=== PATIENT | female | born 2000 | race Caucasian/White ===

== ENCOUNTER 2020-10-14 07:55 | Inpatient (IN) | payer MEDICAID, OTHER ==
[~2020-10-14] VITALS: Ht 157.5 cm; Wt 63.5 kg
[2020-10-14] MEDS ORDERED: PENICILLIN G POTASSIUM 5 MMU in DEXT 5% WATER 100 ML IV SCH (08:30)
[2020-10-14] MEDS ORDERED: LACTATED RINGERS 1,000 ML IV SCH (08:30)
[2020-10-14] MEDS ORDERED: LIDOCAINE HCL 1% 20ML VIAL (Pyxis) INJ INFIL SCH (08:30)
[2020-10-14] MEDS ORDERED: BUTORPHANOL TARTRATE 2 MG/ML VIAL IV PRN (08:30)
[2020-10-14] MEDS ORDERED: METHYLERGONOVINE MALEATE 0.2 MG/ML IM PRN (08:30)
[2020-10-14] MEDS ORDERED: NALOXONE HCL 0.4 MG/ML 1ML VIAL IM PRN (08:30)
[2020-10-14] MEDS ORDERED: CARBOPROST TROMETHAMINE 250 MCG/ML AMPUL IM PRN (08:30)
[2020-10-14] MEDS ORDERED: DEXT 5%/LACTATED RINGERS 1,000 ML IV SCH (08:30)
[2020-10-14] MEDS ORDERED: MISOPROSTOL 100MCG TABLET RC SCH (08:30)
[2020-10-14 09:30] LABS: BASOPHILS % 0.3 % (0.0-2.0); EOSINOPHILS % 0.8 % (0.0-5.0); HEMATOCRIT. 37.5 % (36.0-48.0); HEMOGLOBIN. 12.5 g/dL (12.0-16.0); LYMPHOCYTES % 15.9 % (20.0-50.0); MEAN CORPUSCULAR HEMOGLOBIN 29.2 pg (28.0-32.0); MEAN CORPUSCULAR VOLUME 87.2 fL (81.0-99.0); MEAN PLATELET VOLUME 10.1 fl (7.4-10.4); MONOCYTES % 6.4 % (2.0-8.0); NEUTROPHILS % 76.6 % (40.0-76.0); PLATELET 172 x1000/uL (130-400)
[2020-10-14] MEDS ORDERED: MINERAL OIL 30ML BOTTLE PO NR (12:30)
[2020-10-14] MEDS ORDERED: PENICILLIN G POTASSIUM 2.5 MMU in DEXTROSE 5% WATER 50 ML IV SCH (12:30)
[2020-10-14 12:50] LABS: HEPATITIS B SURFACE ANTIGEN NEGATIVE
[2020-10-14] MEDS: DEXT 5%/LR + PITOCIN 20UNITS/L 1,000 ML IV SCH ×2 (12:50→14:37)
[2020-10-14] MEDS ORDERED: BISACODYL 10MG SUPP PR PRN (13:30)
[2020-10-14] MEDS ORDERED: BENZOCAINE/LANOLIN/ALOE VERA SPRAY TOP PRN (13:30)
[2020-10-14] MEDS ORDERED: IBUPROFEN 800MG TABLET PO PRN (13:30)
[2020-10-14] MEDS ORDERED: HEMORRHOIDAL SUPP PR PRN (13:30)
[2020-10-14] MEDS ORDERED: IBUPROFEN 400MG TABLET PO PRN (13:30)
[2020-10-14] MEDS ORDERED: DEXT 5%/LR + PITOCIN 20UNITS/L 1,000 ML IV SCH (13:30)
[2020-10-14] MEDS ORDERED: ACETAMINOPHEN WITH CODEINE 300/30MG TABLET PO PRN (13:30)
[2020-10-14] MEDS ORDERED: GLYCERIN/WITCH HAZEL LEAF MEDICATED PAD TOP PRN (13:30)
[2020-10-14 15:20] VITALS: BP 120/72
[2020-10-14 15:44] LABS: CLARITY URINE CLOUDY (CLEAR); COLOR URINE YELLOW (YELLOW); KETONES URINE NEGATIVE (NEGATIVE); LEUKOCYTE ESTERASE URINE 3+ (NEGATIVE); NITRITE URINE NEGATIVE (NEGATIVE); OCCULT BLOOD URINE 3+ (NEGATIVE); PH URINE 6.5 (4.5-8.0); PROTEIN URINE NEGATIVE (NEGATIVE); SPECIFIC GRAVITY URINE 1.011 (1.005-1.030); UROBILINOGEN URINE 0.2 E.U./dL (0.2-1.0)
[2020-10-14 15:50] VITALS: BP 111/76
[2020-10-14 16:13] VITALS: BP 119/71
[2020-10-14 16:17] LABS: *AMPHETAMINES SCREEN URINE NEGATIVE (NEGATIVE); *BARBITURATES SCREEN URINE NEGATIVE (NEGATIVE); *BENZODIAZEPINES SCREEN URINE NEGATIVE (NEGATIVE); *COCAINE SCREEN URINE NEGATIVE (NEGATIVE); CANNABINOID URINE SCREEN NEGATIVE (NEGATIVE)
[2020-10-14 16:19] LABS: METHADONE URINE SCREEN NEGATIVE (NEGATIVE); OPIATES URINE SCREEN NEGATIVE (NEGATIVE); PHENCYCLIDINE URINE SCREEN NEGATIVE (NEGATIVE)
[2020-10-14] MEDS: SIMETHICONE 80MG TABLET CHEW PO SCH ×2 (16:37→21:35)
[2020-10-14] MEDS: MAGNESIUM/ALUMINUM HYDROXIDE/SIMETHICONE 30ML UDC PO SCH ×2 (16:38→21:35)
[2020-10-14 16:50] LABS: INR 0.9; PARTIAL THROMBOPLASTIN TIME 27.4 sec (23.4-31.0)
[2020-10-14 20:00] VITALS: BP 117/75
[2020-10-14] MEDS: DOCUSATE SODIUM 100MG CAPSULE PO SCH (21:35)
[2020-10-15 04:00] VITALS: BP 104/68
[2020-10-15 06:12] LABS: BASOPHILS % 0.2 % (0.0-2.0); EOSINOPHILS % 0.2 % (0.0-5.0); HEMATOCRIT. 32.3 % (36.0-48.0); HEMOGLOBIN. 10.7 g/dL (12.0-16.0); LYMPHOCYTES % 12.1 % (20.0-50.0); MEAN CORPUSCULAR HEMOGLOBIN 29.2 pg (28.0-32.0); MEAN CORPUSCULAR VOLUME 87.9 fL (81.0-99.0); MEAN PLATELET VOLUME 9.7 fl (7.4-10.4); MONOCYTES % 5.8 % (2.0-8.0); NEUTROPHILS % 81.7 % (40.0-76.0); PLATELET 154 x1000/uL (130-400); RED BLOOD CELL COUNT 3.67 mill/uL (4.2-5.4)
[2020-10-15] MEDS ORDERED: FERROUS SULFATE 325MG TABLET PO SCH (07:30)
[2020-10-15 08:10] VITALS: BP 114/82
[2020-10-15] MEDS ORDERED: PRENATAL VIT/FE FUMARATE/FA TABLET PO SCH (09:00)
[2020-10-15] MEDS ORDERED: IBUP-2030 PO (09:02)
[2020-10-15] MEDS ORDERED: FERR325T23 PO (09:02)
[2020-10-15 19:45] VITALS: BP 116/77
[2020-10-15] MEDS: DOCUSATE SODIUM 100MG CAPSULE PO SCH (21:05)
[2020-10-15] MEDS: MAGNESIUM/ALUMINUM HYDROXIDE/SIMETHICONE 30ML UDC PO SCH (21:05)
[2020-10-15] MEDS: SIMETHICONE 80MG TABLET CHEW PO SCH (21:06)
[2020-10-16 03:40] VITALS: BP 101/55
[2020-10-16] MEDS: MAGNESIUM/ALUMINUM HYDROXIDE/SIMETHICONE 30ML UDC PO SCH (07:30)
[2020-10-16 07:37] VITALS: BP 111/72
[2020-10-16] MEDS: SIMETHICONE 80MG TABLET CHEW PO SCH (07:57)
== END 2020-10-16 11:25 | disposition home or self-care (01) | DRG 560 ==
LOC: 8 EST LDRP 07:55 → OBSVTOIN 07:55 → 8EST 16:09
PROVIDERS: ADMIT Obstetrics & Gynecology; ATTEND Obstetrics & Gynecology
PROC: 10E0XZZ Delivery of Products of Conception, External Approach (ICD-10-PCS; principal; 2020-10-14)
DX: O90.81 Anemia of the puerperium (principal); Z37.0 Single live birth; Z3A.40 40 weeks gestation of pregnancy
CPT/HCPCS: 36415; 80305; 81003; 85025; 86592; 86703; 86762; 86850; 86900; 87340; 99281; J2540; J2590; J3490; J7060; J7120; J7121

== ENCOUNTER 2023-06-08 08:47 | Inpatient (IN) | payer OTHER ==
[~2023-06-08] VITALS: Ht 157.5 cm; Wt 69.4 kg
[~2023-06-08 08:47] MED LIST: FERR325T23 PO; IBUP-2030 PO
[2023-06-08] MEDS ORDERED: MEPERIDINE HCL/PF 50MG/ML CPJ IM NR (09:30)
[2023-06-08] MEDS ORDERED: MEPERIDINE HCL/PF 50MG/ML CPJ IV NR (09:30)
[2023-06-08] MEDS ORDERED: LIDOCAINE HCL 1% 20ML VIAL (Pyxis) INJ INFIL SCH (10:00)
[2023-06-08] MEDS ORDERED: METHYLERGONOVINE MALEATE 0.2 MG/ML IM PRN ×2 (10:00→11:45)
[2023-06-08] MEDS ORDERED: DEXT 5%/LACTATED RINGERS 1,000 ML IV SCH (10:00)
[2023-06-08] MEDS ORDERED: OXYTOCIN 30 UNITS/500ML NS PMX 500 ML IV SCH ×2 (10:00→11:45)
[2023-06-08] MEDS ORDERED: RHO(D) IMMUNE GLOBULIN 300 MCG/SYR IM ONE ×2 (10:00→10:15)
[2023-06-08] MEDS ORDERED: CARBOPROST TROMETHAMINE 250 MCG/ML AMPUL IM PRN (10:00)
[2023-06-08 10:14] LABS: BASOPHILS % 0.3 % (0.0-2.0); CLARITY URINE CLEAR (CLEAR); COLOR URINE YELLOW (YELLOW); EOSINOPHILS % 0.1 % (0.0-5.0); HEMATOCRIT. 33.3 % (36.0-48.0); HEMOGLOBIN. 10.9 g/dL (12.0-16.0); KETONES URINE TRACE (NEGATIVE); LEUKOCYTE ESTERASE URINE 1+ (NEGATIVE); LYMPHOCYTES % 10.7 % (20.0-50.0); MEAN CORPUSCULAR HEMOGLOBIN 26.6 pg (28.0-32.0); MEAN CORPUSCULAR VOLUME 81.6 fL (81.0-99.0); MEAN PLATELET VOLUME 10.7 fl (7.4-10.4); MONOCYTES % 4.3 % (2.0-8.0); NEUTROPHILS % 84.6 % (40.0-76.0); NITRITE URINE NEGATIVE (NEGATIVE); OCCULT BLOOD URINE 3+ (NEGATIVE); PLATELET 204 x1000/uL (130-400); PROTEIN URINE TRACE (NEGATIVE); RED BLOOD CELL COUNT 4.09 mill/uL (4.2-5.4); SPECIFIC GRAVITY URINE 1.018 (1.005-1.030)
[2023-06-08 10:24] LABS: INR 0.9; PARTIAL THROMBOPLASTIN TIME 24.9 sec (23.4-31.0); PROTHROMBIN TIME 9.8 sec (9.6-11.0)
[2023-06-08 10:50] LABS: *AMPHETAMINES SCREEN URINE NEGATIVE (NEGATIVE); *BARBITURATES SCREEN URINE NEGATIVE (NEGATIVE); *BENZODIAZEPINES SCREEN URINE NEGATIVE (NEGATIVE); *COCAINE SCREEN URINE NEGATIVE (NEGATIVE); CANNABINOID URINE SCREEN NEGATIVE (NEGATIVE); METHADONE URINE SCREEN NEGATIVE (NEGATIVE); OPIATES URINE SCREEN NEGATIVE (NEGATIVE); PHENCYCLIDINE URINE SCREEN NEGATIVE (NEGATIVE)
[2023-06-08] MEDS ORDERED: BENZOCAINE/LANOLIN/ALOE VERA SPRAY TOP PRN (11:45)
[2023-06-08] MEDS ORDERED: BISACODYL 10MG SUPP PR PRN (11:45)
[2023-06-08] MEDS ORDERED: IBUPROFEN 400MG TABLET PO PRN (11:45)
[2023-06-08] MEDS ORDERED: GLYCERIN/WITCH HAZEL LEAF MEDICATED PAD TOP PRN (11:45)
[2023-06-08] MEDS ORDERED: DIPHENHYDRAMINE 25MG CAPSULE PO PRN (11:45)
[2023-06-08] MEDS ORDERED: ACETAMINOPHEN WITH CODEINE 300/30MG TABLET PO PRN (11:45)
[2023-06-08] MEDS ORDERED: RHO(D) IMMUNE GLOBULIN 300 MCG/SYR IM PRN (11:45)
[2023-06-08] MEDS ORDERED: HEMORRHOIDAL SUPP PR PRN (11:45)
[2023-06-08] MEDS ORDERED: LANOLIN OINT 7GM TUBE TOP PRN (11:45)
[2023-06-08 14:15] VITALS: BP 105/76; PULSE 83; RESP 18; TEMP 98.3
[2023-06-08 14:45] VITALS: BP 110/71; PULSE 93; RESP 18; TEMP 98.2
[2023-06-08 14:49] VITALS: O2SAT 98
[2023-06-08 20:00] VITALS: BP 118/77; PULSE 90; RESP 18; TEMP 98.6; O2SAT 98
[2023-06-08] MEDS: MAGNESIUM/ALUMINUM HYDROXIDE/SIMETHICONE 30ML UDC PO SCH (20:39)
[2023-06-08] MEDS: DOCUSATE SODIUM 100MG CAPSULE PO SCH (20:39)
[2023-06-08] MEDS: SIMETHICONE 80MG TABLET CHEW PO SCH (20:40)
[2023-06-08] MEDS: IBUPROFEN 800MG TABLET PO PRN (20:40)
[2023-06-09 03:15] VITALS: BP 111/66; PULSE 79; RESP 18; TEMP 98.2
[2023-06-09 07:35] LABS: BASOPHILS % 0.2 % (0.0-2.0); EOSINOPHILS % 0.3 % (0.0-5.0); HEMATOCRIT. 23.1 % (36.0-48.0); HEMOGLOBIN. 7.5 g/dL (12.0-16.0); LYMPHOCYTES % 20.5 % (20.0-50.0); MEAN CORPUSCULAR HEMOGLOBIN 26.7 pg (28.0-32.0); MEAN CORPUSCULAR VOLUME 82.2 fL (81.0-99.0); MEAN PLATELET VOLUME 10.6 fl (7.4-10.4); MONOCYTES % 5.6 % (2.0-8.0); NEUTROPHILS % 73.4 % (40.0-76.0); PLATELET 162 x1000/uL (130-400); RED BLOOD CELL COUNT 2.81 mill/uL (4.2-5.4); RED CELL DISTRIBUTION WIDTH 14.6 % (11.6-14.6)
[2023-06-09 07:45] VITALS: O2SAT 100; O2SAT 98
[2023-06-09 07:48] VITALS: BP_SYST 96; BP_DIAS 53; BP_DIAS 63; PULSE 81; RESP 18; TEMP 98.6; TEMP 98.7
[2023-06-09] MEDS: MAGNESIUM/ALUMINUM HYDROXIDE/SIMETHICONE 30ML UDC PO SCH ×3 (08:00→21:44)
[2023-06-09] MEDS: FERROUS SULFATE 325MG TABLET PO SCH ×3 (08:25→17:42)
[2023-06-09] MEDS: SIMETHICONE 80MG TABLET CHEW PO SCH ×4 (08:26→21:44)
[2023-06-09] MEDS ORDERED: PRENATAL VIT/FE FUMARATE/FA TABLET PO SCH (09:00)
[2023-06-09] MEDS: IBUPROFEN 800MG TABLET PO PRN (13:41)
[2023-06-09 16:00] VITALS: BP 100/67; PULSE 81; RESP 18; TEMP 98.1
[2023-06-09 19:30] VITALS: BP 104/67; PULSE 92; RESP 20; TEMP 98.4; O2SAT 99
[2023-06-09] MEDS: DOCUSATE SODIUM 100MG CAPSULE PO SCH (21:44)
[2023-06-10 04:00] VITALS: BP 107/68; PULSE 66; RESP 20; TEMP 98.4
[2023-06-10] MEDS ORDERED: MULT-1116 MT (07:24)
[2023-06-10 08:00] VITALS: BP 107/75; PULSE 77; RESP 20; TEMP 98.2; O2SAT 97
== END 2023-06-10 12:05 | disposition home or self-care (01) | DRG 560 ==
LOC: OBSVTOIN 08:47 → 8 EST LDRP 08:47 → 8EST 14:23
PROVIDERS: ADMIT Obstetrics & Gynecology; ATTEND Obstetrics & Gynecology
PROC: 10E0XZZ Delivery of Products of Conception, External Approach (ICD-10-PCS; principal; 2023-06-08)
PROC: 3E0R3BZ Introduction of Anesthetic Agent into Spinal Canal, Percutaneous Approach (ICD-10-PCS; 2023-06-08)
PROC: 00HU33Z Insertion of Infusion Device into Spinal Canal, Percutaneous Approach (ICD-10-PCS; 2023-06-08)
DX: O69.81X0 Labor and delivery complicated by cord around neck, without compression, not applicable or unspecified (principal); Z37.0 Single live birth; O99.02 Anemia complicating childbirth; Z3A.39 39 weeks gestation of pregnancy
CPT/HCPCS: 36415; 80305; 81003; 85025; 86592; 86703; 86762; 86850; 86900; 87340; J2175; J3490; J7121; J2590